=== PATIENT | male | born 1955 | race African-American/Black ===

== ENCOUNTER 2023-02-26 19:04 | Emergency (ER) | payer OTHER ==
[~2023-02-26] VITALS: Ht 182.9 cm; Wt 82.0 kg
[2023-02-26] MEDS ORDERED: ONDANSETRON HCL 4MG/2ML INJ IV STA (19:56)
[2023-02-26] MEDS ORDERED: SODIUM CHLORIDE 0.9% 1,000 ML IV ONE ×2 (20:00→23:00)
[2023-02-26 20:23] VITALS: BP 141/76
[2023-02-26 22:26] LABS: HEMATOCRIT. 37.3 % (42.0-52.0); HEMOGLOBIN. 12.4 g/dL (14.0-18.0); MEAN CORPUSCULAR HEMOGLOBIN 26.4 pg (28.0-32.0); MEAN CORPUSCULAR VOLUME 79.3 fL (80.0-94.0); MEAN PLATELET VOLUME 7.1 fl (7.4-10.4); PLATELET 159 x1000/uL (130-400); RED BLOOD CELL COUNT 4.71 mill/uL (4.7-6.1); RED CELL DISTRIBUTION WIDTH 13.3 % (11.6-14.6)
[2023-02-26 22:34] LABS: CHLORIDE 93 mEq/L (98-107)
[2023-02-26 22:46] LABS: CLARITY URINE CLEAR (CLEAR); COLOR URINE YELLOW (YELLOW); KETONES URINE NEGATIVE (NEGATIVE); LEUKOCYTE ESTERASE URINE NEGATIVE (NEGATIVE); NITRITE URINE NEGATIVE (NEGATIVE); OCCULT BLOOD URINE NEGATIVE (NEGATIVE); PH URINE 8.5 (4.5-8.0); PROTEIN URINE NEGATIVE (NEGATIVE); SPECIFIC GRAVITY URINE 1.009 (1.005-1.030); UROBILINOGEN URINE 0.2 E.U./dL (0.2-1.0)
[2023-02-26 23:20] LABS: PLATELET ESTIMATE NORMAL
== END 2023-02-26 23:54 | disposition home or self-care (01) ==
LOC: ER 19:04
DX: R55 Syncope and collapse (principal); E87.1 Hypo-osmolality and hyponatremia; E86.0 Dehydration; E78.00 Pure hypercholesterolemia, unspecified
CPT/HCPCS: 36415; 70450; 71045; 80053; 81003; 84484; 85025; 93005; 96360; 99285; J7030

== ENCOUNTER 2023-11-13 13:05 | Inpatient (IN) | payer OTHER ==
[~2023-11-13] VITALS: Ht 175.3 cm; Wt 95.7 kg
[2023-11-13 13:09] VITALS: O2SAT 93
[2023-11-13] MEDS ORDERED: MORPHINE SULFATE 4 MG/ML CPJ (NOT FOR IM USE) IV STA (13:13)
[2023-11-13] MEDS ORDERED: ONDANSETRON HCL 4MG/2ML INJ IV STA (13:13)
[2023-11-13] MEDS ORDERED: SODIUM CHLORIDE 0.9% 1,000 ML IV ONE ×2 (13:15→15:00)
[2023-11-13 14:00] LABS: BASOPHILS % 0.2 % (0.0-2.0); EOSINOPHILS % 0.5 % (0.0-5.0); HEMATOCRIT. 37.5 % (42.0-52.0); HEMOGLOBIN. 12.2 g/dL (14.0-18.0); LYMPHOCYTES % 29.6 % (20.0-50.0); MEAN CORPUSCULAR HEMOGLOBIN 26.7 pg (28.0-32.0); MEAN CORPUSCULAR HGB CONC 32.7 g/dL (31.0-37.0); MEAN CORPUSCULAR VOLUME 81.7 fL (80.0-94.0); MEAN PLATELET VOLUME 6.7 fl (7.4-10.4); MONOCYTES % 7.3 % (2.0-8.0); NEUTROPHILS % 62.4 % (40.0-76.0); PLATELET 259 x1000/uL (130-400); RED BLOOD CELL COUNT 4.58 mill/uL (4.7-6.1); RED CELL DISTRIBUTION WIDTH 16.3 % (11.6-14.6); WHITE BLOOD COUNT 4.8 x1000/uL (4.5-11.0)
[2023-11-13 14:14] LABS: ALANINE AMINOTRANSFERASE 43 IU/L (10-49); ASPARTATE AMINOTRANSFERASE 37 IU/L (<34); BILIRUBIN TOTAL 0.5 mg/dL (0.1-1.0); CALCIUM 9.2 mg/dL (8.7-10.4); CARBON DIOXIDE 25 mEq/L (21-32); CHLORIDE 94 mEq/L (98-107); CREATININE 0.9 mg/dL (0.6-1.3); GLUCOSE 152 mg/dL (70-105); POTASSIUM 4.9 mEq/L (3.5-5.1); PROTEIN TOTAL 7.3 g/dL (6.0-8.3); SODIUM 125 mEq/L (136-145); UREA NITROGEN BLOOD 12 mg/dL (9-23)
[2023-11-13 14:21] LABS: TROPONIN I HIGH SENSITIVITY < 4 ng/L (3.0-53)
[2023-11-13] MEDS ORDERED: MORPHINE SULFATE 4 MG/ML CPJ (NOT FOR IM USE) IV NR (16:23)
[2023-11-13] MEDS ORDERED: ONDANSETRON HCL 4MG/2ML INJ IV NR (16:24)
[2023-11-13 16:40] LABS: TROPONIN I HIGH SENSITIVITY 4 ng/L (3.0-53)
[2023-11-13 20:00] VITALS: BP 160/78; PULSE 92; RESP 14
[2023-11-13] MEDS ORDERED: IPRATROPIUM/ALBUTEROL 0.5-3(2.5)MG/3ML NEB HHN PRN (20:00)
[2023-11-13] MEDS ORDERED: ONDANSETRON HCL 4MG/2ML INJ IV PRN (20:00)
[2023-11-13] MEDS ORDERED: DOCUSATE SODIUM 100MG CAPSULE PO PRN (20:00)
[2023-11-13] MEDS ORDERED: CLONIDINE 0.1MG TABLET PO PRN (20:00)
[2023-11-13] MEDS ORDERED: ACETAMINOPHEN 325MG TABLET PO PRN ×2 (20:00)
[2023-11-13 22:00] VITALS: BP_SYST 131; BP_SYST 133; BP_DIAS 70; BP_DIAS 74; PULSE 88; PULSE 94; RESP 17; TEMP 98.8
[2023-11-14] VITALS (11 sets, daily range): BP systolic 123–148; BP diastolic 68–95; PULSE 74–90; RESP 11–21; TEMP 97–98.8
[2023-11-14 07:43] LABS: BASOPHILS % 0.5 % (0.0-2.0); EOSINOPHILS % 1.8 % (0.0-5.0); HEMATOCRIT. 35.8 % (42.0-52.0); HEMOGLOBIN. 12.1 g/dL (14.0-18.0); MEAN CORPUSCULAR HEMOGLOBIN 27.2 pg (28.0-32.0); MEAN CORPUSCULAR HGB CONC 33.9 g/dL (31.0-37.0); MEAN CORPUSCULAR VOLUME 80.4 fL (80.0-94.0); MONOCYTES % 12.4 % (2.0-8.0); NEUTROPHILS % 46.3 % (40.0-76.0); PLATELET 262 x1000/uL (130-400); RED BLOOD CELL COUNT 4.45 mill/uL (4.7-6.1); RED CELL DISTRIBUTION WIDTH 16.6 % (11.6-14.6)
[2023-11-14 07:46] LABS: CALCIUM 9.1 mg/dL (8.7-10.4); CARBON DIOXIDE 24 mEq/L (21-32); CHLORIDE 96 mEq/L (98-107); CREATININE 0.6 mg/dL (0.6-1.3); GLUCOSE 94 mg/dL (70-105); POTASSIUM 4.6 mEq/L (3.5-5.1); SODIUM 127 mEq/L (136-145); UREA NITROGEN BLOOD 11 mg/dL (9-23)
[2023-11-14] MEDS ORDERED: LORAZEPAM 0.5MG TABLET PO PRN (20:00)
[2023-11-14] MEDS ORDERED: MISCELLANEOUS MEDICATION 1 EA PO SCH (21:00)
[2023-11-14] MEDS ORDERED: MELATONIN 3MG TABLET PO SCH (21:00)
== END 2023-11-14 21:55 | disposition short-term general hospital (02) | DRG 312 ==
LOC: ER 13:10 → EDBEDREQ 15:53 → EDBEDREQTM 15:53 → 5EST 18:44
PROVIDERS: ADMIT Internal Medicine; ATTEND Internal Medicine
DX: R55 Syncope and collapse (principal); I46.9 Cardiac arrest, cause unspecified; J44.9 Chronic obstructive pulmonary disease, unspecified; Z85.118 Personal history of other malignant neoplasm of bronchus and lung
CPT/HCPCS: 36415; 71045; 80048; 80053; 83605; 83880; 84484; 85025; 86850; 86900; 93005; 99291; J2270; J2405; J7030

== ENCOUNTER 2024-01-08 11:56 | Emergency (ER) | payer OTHER ==
[~2024-01-08] VITALS: Ht 188 cm; Wt 101.0 kg
[2024-01-08 12:08] VITALS: O2SAT 98
[2024-01-08] MEDS ORDERED: HYDROCODONE/ACETAMINOPHEN 10/325MG TABLET PO ONE (12:15)
[2024-01-08 14:06] VITALS: TEMP 98.1
[2024-01-08 14:16] LABS: BASOPHILS % 0.2 % (0.0-2.0); HEMATOCRIT. 38.7 % (42.0-52.0); HEMOGLOBIN. 13.2 g/dL (14.0-18.0); LYMPHOCYTES % 8.8 % (20.0-50.0); MEAN CORPUSCULAR HEMOGLOBIN 29.1 pg (28.0-32.0); MEAN CORPUSCULAR HGB CONC 34.2 g/dL (31.0-37.0); MEAN CORPUSCULAR VOLUME 84.9 fL (80.0-94.0); MEAN PLATELET VOLUME 7.2 fl (7.4-10.4); PLATELET 235 x1000/uL (130-400); RED BLOOD CELL COUNT 4.56 mill/uL (4.7-6.1); RED CELL DISTRIBUTION WIDTH 18.5 % (11.6-14.6); WHITE BLOOD COUNT 6.5 x1000/uL (4.5-11.0)
[2024-01-08 14:26] LABS: PROTHROMBIN TIME 11.1 sec (9.6-11.0)
[2024-01-08 14:30] LABS: ALANINE AMINOTRANSFERASE 43 IU/L (10-49); ALBUMIN 4.9 g/dL (3.2-4.8); ASPARTATE AMINOTRANSFERASE 70 IU/L (<34); BILIRUBIN TOTAL 0.8 mg/dL (0.1-1.0); CALCIUM 9.4 mg/dL (8.7-10.4); CARBON DIOXIDE 27 mEq/L (21-32); CHLORIDE 98 mEq/L (98-107); CREATININE 0.9 mg/dL (0.6-1.3); GLUCOSE 105 mg/dL (70-105); PROTEIN TOTAL 8.5 g/dL (6.0-8.3); SODIUM 131 mEq/L (136-145); UREA NITROGEN BLOOD 16 mg/dL (9-23)
[2024-01-08 14:31] LABS: TROPONIN I HIGH SENSITIVITY < 4 ng/L (3.0-53)
[2024-01-08] MEDS: HYDROCODONE/ACETAMINOPHEN 10/325MG TABLET PO NR (15:27)
[2024-01-08 16:30] VITALS: BP 131/70; PULSE 89; RESP 14
== END 2024-01-08 16:31 | disposition home or self-care (01) ==
LOC: ER 12:24
DX: R07.89 Other chest pain (principal); E78.00 Pure hypercholesterolemia, unspecified
CPT/HCPCS: 36415; 71045; 80053; 83880; 84484; 85025; 93005; 99285

== ENCOUNTER 2024-03-24 04:38 | Inpatient (IN) | payer OTHER, MEDICARE ==
[2024-03-24] VITALS (68 sets, daily range): BP systolic 52–153; BP diastolic 25–128; PULSE 100–128; RESP 21–43; TEMP 97.8–100.3; O2SAT 99–100
[~2024-03-24] VITALS: Ht 175.3 cm; Wt 85.5 kg
[2024-03-24] MEDS: SODIUM CHLORIDE 0.9% 1000ML BAG (SEPSIS BOLUS) IV ONE (05:13)
[2024-03-24] MEDS ORDERED: CEFEPIME 2GM IN DEXT 5% 100ML IV ONE (05:30)
[2024-03-24 06:04] LABS: HEMATOCRIT. 28.3 % (42.0-52.0); HEMOGLOBIN. 9.4 g/dL (14.0-18.0); MEAN CORPUSCULAR HEMOGLOBIN 28.4 pg (28.0-32.0); MEAN CORPUSCULAR VOLUME 86.1 fL (80.0-94.0); MEAN PLATELET VOLUME 6.8 fl (7.4-10.4); PLATELET 68 x1000/uL (130-400); RED BLOOD CELL COUNT 3.29 mill/uL (4.7-6.1); RED CELL DISTRIBUTION WIDTH 16.2 % (11.6-14.6)
[2024-03-24 06:11] LABS: CARBON DIOXIDE 20 mEq/L (21-32); CHLORIDE 107 mEq/L (98-107); POTASSIUM 3.6 mEq/L (3.5-5.1); SODIUM 137 mEq/L (136-145)
[2024-03-24 06:12] LABS: CALCIUM 7.9 mg/dL (8.7-10.4)
[2024-03-24 06:14] LABS: DIFFERENTIAL COMMENT 1
[2024-03-24] MEDS ORDERED: IOHEXOL-350 100 ML BOTTLE ONE ×2 (06:14→10:11)
[2024-03-24 06:15] LABS: INR 1.1; PARTIAL THROMBOPLASTIN TIME 23.3 sec (23.4-31.0); PROTHROMBIN TIME 11.9 sec (9.6-11.0)
[2024-03-24 06:17] LABS: GLUCOSE 124 mg/dL (70-105); TROPONIN I HIGH SENSITIVITY 5 ng/L (3.0-53); UREA NITROGEN BLOOD 16 mg/dL (9-23)
[2024-03-24 06:18] LABS: ALANINE AMINOTRANSFERASE 27 IU/L (10-49); ALBUMIN 3.5 g/dL (3.2-4.8); ASPARTATE AMINOTRANSFERASE 31 IU/L (<34)
[2024-03-24 06:19] LABS: BILIRUBIN DIRECT 0.2 mg/dL (<=3.0); BILIRUBIN TOTAL 0.5 mg/dL (0.1-1.0)
[2024-03-24] MEDS ORDERED: ACETAMINOPHEN 325MG TABLET PO ONE (06:30)
[2024-03-24 06:31] LABS: LACTIC ACID 3.9 mmol/L (0.4-2.0)
[2024-03-24 06:34] LABS: CREATININE 1.4 mg/dL (0.6-1.3); PROTEIN TOTAL 5.6 g/dL (6.0-8.3)
[2024-03-24] MEDS: NOREPINEPHRINE 8MG/250ML PMX 250 ML IV ONE ×2 (06:39→08:15)
[2024-03-24] MEDS: CEFEPIME 2GM/100ML 100 ML IV NR (06:41)
[2024-03-24] MEDS: VANCOMYCIN 1G PREMIX 200 ML IV SCH ×3 (06:46→13:04)
[2024-03-24] MEDS ORDERED: PHENYLEPHRINE 100 MG in DEXT 5% WATER 240 ML IV PRN (07:45)
[2024-03-24] MEDS ORDERED: ACETAMINOPHEN 325MG TABLET PO PRN (07:45)
[2024-03-24] MEDS ORDERED: MAGNESIUM/ALUMINUM HYDROXIDE/SIMETHICONE 30ML UDC PO PRN (07:45)
[2024-03-24] MEDS ORDERED: GUAIFENESIN 200MG/10ML SUGAR FREE UDC PO PRN (07:45)
[2024-03-24] MEDS ORDERED: ONDANSETRON HCL 4MG/2ML INJ IV PRN (07:45)
[2024-03-24] MEDS ORDERED: CLONIDINE 0.1MG TABLET PO PRN (07:45)
[2024-03-24] MEDS ORDERED: VASOPRESSIN 20 UNIT in SODIUM CHLORIDE 0.9% 99 ML IV PRN (08:30)
[2024-03-24 08:35] LABS: TROPONIN I HIGH SENSITIVITY 8 ng/L (3.0-53)
[2024-03-24] MEDS ORDERED: MEROPENEM 1,000 MG in SODIUM CHLORIDE 0.9% 100 ML IV SCH (08:45)
[2024-03-24] MEDS ORDERED: LACTATED RINGERS 1,700 ML IV ONE (08:45)
[2024-03-24] MEDS ORDERED: DOCUSATE SODIUM 100MG CAPSULE PO PRN (09:00)
[2024-03-24] MEDS ORDERED: ETOMIDATE 2MG/ML 10ML VIAL IV ONE (09:00)
[2024-03-24] MEDS ORDERED: NALOXONE HCL 0.4MG/ML VIAL IV PRN (09:00)
[2024-03-24 09:21] LABS: IRON 19 ug/dL (65-175)
[2024-03-24 09:24] LABS: TOTAL IRON BINDING CAPACITY 272 ug/dl (250-425)
[2024-03-24] MEDS ORDERED: LIDOCAINE HCL 1% 10 MG/ML 10ML VIAL ONE (09:25)
[2024-03-24 09:27] LABS: FOLIC ACID (FOLATE) SERUM > 20.00 ng/mL (>5.38); VITAMIN B12 SERUM 1767 pg/mL (211-911)
[2024-03-24] MEDS ORDERED: MEROPENEM 1G/100ML IV SCH (10:00)
[2024-03-24 10:05] LABS: PLATELET ESTIMATE DECREASED
[2024-03-24 10:06] LABS: ANISOCYTOSIS 1+
[2024-03-24 10:12] LABS: BG BASE EXCESS -8.7 mmol/L (-2.0-2.0); BG CARBOXYHEMOGLOBIN 0.2 % (0.5-1.5); BG DEOXYHEMOGLOBIN 7.2 % (0.0-5.0); BG FRACTION INSPIRED OXYGEN 100; BG HCO3 ACT 17.8 mmol/L (22.0-26.0); BG OXYGEN SATURATION 92.8 % (92.0-98.5); BG OXYHEMOGLOBIN 92.6 % (94.0-97.0); BG PCO2 41.2 mmHg (35.0-45.0); BG PH 7.254 (7.350-7.450); BG PO2 81.8 mmHg (75.0-100.0); BG SAMPLE SITE RIGHT RADIAL; BG TOTAL HEMOGLOBIN 8.7 g/dL (12.0-18.0); BG VENT MODE MASK - NRB
[2024-03-24] MEDS: MEROPENEM 1G/100ML IV SCH ×2 (12:04→17:24)
[2024-03-24] MEDS: METHYLPREDNISOLONE SOD SUCC 40MG/ML (ACT-O-VIAL) IV SCH (12:06)
[2024-03-24] MEDS: PHENYLEPHRINE 100 MG in DEXT 5% WATER 240 ML IV PRN (13:47)
[2024-03-24] MEDS ORDERED: PIPERACILLIN/TAZO 3.375G/50ML 50 ML IV SCH (14:00)
[2024-03-24 14:18] LABS: CLARITY URINE CLOUDY (CLEAR); COLOR URINE DARK YELLOW (YELLOW); GLUCOSE URINE NEGATIVE (NEGATIVE); KETONES URINE TRACE (NEGATIVE); LEUKOCYTE ESTERASE URINE NEGATIVE (NEGATIVE); NITRITE URINE NEGATIVE (NEGATIVE); OCCULT BLOOD URINE 1+ (NEGATIVE); PH URINE 5.5 (4.5-8.0); PROTEIN URINE 2+ (NEGATIVE)
[2024-03-24 14:28] LABS: *AMPHETAMINES SCREEN URINE NEGATIVE (NEGATIVE); *BARBITURATES SCREEN URINE NEGATIVE (NEGATIVE); *BENZODIAZEPINES SCREEN URINE NEGATIVE (NEGATIVE); *COCAINE SCREEN URINE NEGATIVE (NEGATIVE); BACTERIA URINE 1+; CANNABINOID URINE SCREEN NEGATIVE (NEGATIVE); ECSTASY MDMA SCREEN URINE NEGATIVE (NEGATIVE); METHADONE URINE SCREEN NEGATIVE (NEGATIVE); OPIATES URINE SCREEN PRESUMPTIVE POSITIVE (NEGATIVE); PHENCYCLIDINE URINE SCREEN NEGATIVE (NEGATIVE); RBC URINE NONE SEEN /hpf (0-2); SQUAMOUS EPITHELIAL CELL URINE NONE SEEN /lpf (RARE/1+); YEAST URINE NONE SEEN
[2024-03-24] MEDS: HYDROCODONE/ACETAMINOPHEN 10/325MG TABLET PO PRN (15:42)
[2024-03-24 17:04] LABS: BG BASE EXCESS -15.3 mmol/L (-2.0-2.0); BG CARBOXYHEMOGLOBIN 0.2 % (0.5-1.5); BG DEOXYHEMOGLOBIN 5.9 % (0.0-5.0); BG FRACTION INSPIRED OXYGEN 100; BG HCO3 ACT 12.4 mmol/L (22.0-26.0); BG METHEMOGLOBIN 0.3 % (0.0-1.5); BG OXYGEN SATURATION 94.1 % (92.0-98.5); BG OXYHEMOGLOBIN 93.6 % (94.0-97.0); BG PCO2 35.9 mmHg (35.0-45.0); BG PH 7.157 (7.350-7.450); BG PO2 91.1 mmHg (75.0-100.0); BG SAMPLE SITE RIGHT BRACHIAL; BG TOTAL HEMOGLOBIN 10.4 g/dL (12.0-18.0); BG VENT MODE HIGH FLOW
[2024-03-24] MEDS: LACTATED RINGERS 1,000 ML IV SCH (17:25)
[2024-03-24 17:44] LABS: CREATINE KINASE MB FRACTION 40.4 ng/mL (0.5-3.6)
[2024-03-24] MEDS: PANTOPRAZOLE SODIUM 40 MG/VIAL IV SCH (18:18)
[2024-03-24] MEDS: SODIUM BICARBONATE 8.4% 1 MEQ/ML 50ML SYR IV NR ×3 (18:18→23:59)
[2024-03-24 19:10] LABS: BG BASE EXCESS -15.2 mmol/L (-2.0-2.0); BG CARBOXYHEMOGLOBIN 0.2 % (0.5-1.5); BG DEOXYHEMOGLOBIN 3.3 % (0.0-5.0); BG FRACTION INSPIRED OXYGEN 100; BG HCO3 ACT 14.3 mmol/L (22.0-26.0); BG METHEMOGLOBIN 0.4 % (0.0-1.5); BG OXYGEN SATURATION 96.7 % (92.0-98.5); BG OXYHEMOGLOBIN 96.1 % (94.0-97.0); BG PCO2 50.6 mmHg (35.0-45.0); BG PO2 124.6 mmHg (75.0-100.0); BG SAMPLE SITE RIGHT BRACHIAL; BG TOTAL HEMOGLOBIN 9.9 g/dL (12.0-18.0); BG VENT MODE VENT - AC
[2024-03-24] MEDS: FILGRASTIM-TBO 300 MCG/0.5 ML SYRINGE SQ SCH (20:44)
[2024-03-24] MEDS ORDERED: FILGRASTIM-TBO 300 MCG/0.5 ML SYRINGE SQ SCH (21:00)
[2024-03-24 21:16] LABS: CREATINE KINASE MB FRACTION 49.5 ng/mL (0.5-3.6)
[2024-03-24 21:24] LABS: LACTIC ACID 14.5 mmol/L (0.4-2.0)
[2024-03-24 22:02] LABS: POTASSIUM 4.4 mEq/L (3.5-5.1)
[2024-03-24 22:03] LABS: CALCIUM 7.5 mg/dL (8.7-10.4)
[2024-03-24] MEDS: PROPOFOL 10MG/ML 100ML 100 ML IV PRN (22:11)
[2024-03-24 22:12] LABS: CREATININE 2.3 mg/dL (0.6-1.3)
[2024-03-24 23:28] LABS: BG CARBOXYHEMOGLOBIN 0.2 % (0.5-1.5); BG DEOXYHEMOGLOBIN 3.5 % (0.0-5.0); BG FRACTION INSPIRED OXYGEN 100; BG HCO3 ACT 10.6 mmol/L (22.0-26.0); BG METHEMOGLOBIN 0.5 % (0.0-1.5); BG OXYGEN SATURATION 96.5 % (92.0-98.5); BG OXYHEMOGLOBIN 95.8 % (94.0-97.0); BG PCO2 50.4 mmHg (35.0-45.0); BG PO2 125.3 mmHg (75.0-100.0); BG SAMPLE SITE LEFT RADIAL; BG TOTAL HEMOGLOBIN 10.3 g/dL (12.0-18.0); BG VENT MODE VENT - AC
[2024-03-25] VITALS (68 sets, daily range): BP systolic 40–161; BP diastolic 16–135; PULSE 0–126; RESP 25–42; TEMP 96.7–99.4
[2024-03-25] MEDS: ACETYLCYSTEINE 200MG/ML 20% VIAL 4ML INH NR (00:05)
[2024-03-25] MEDS: IPRATROPIUM/ALBUTEROL 0.5-3(2.5)MG/3ML NEB HHN PRN (00:05)
[2024-03-25] MEDS: SODIUM CHLORIDE 0.9% 1,000 ML IV SCH (00:21)
[2024-03-25] MEDS: SODIUM BICARBONATE 8.4% 1 MEQ/ML 50ML SYR IV NR ×2 (00:34→07:56)
[2024-03-25] MEDS: SODIUM BICARBONATE 150 MEQ in DEXTROSE 5% WATER 850 ML IV SCH (01:12)
[2024-03-25] MEDS: NOREPINEPHRINE 32 MG in DEXT 5% WATER 218 ML IV PRN (01:43)
[2024-03-25] MEDS: METHYLPREDNISOLONE SOD SUCC 40MG/ML (ACT-O-VIAL) IV SCH (04:16)
[2024-03-25] MEDS: VASOPRESSIN 20 UNIT in SODIUM CHLORIDE 0.9% 99 ML IV PRN (04:37)
[2024-03-25 05:22] LABS: HEMATOCRIT. 27.1 % (42.0-52.0); HEMOGLOBIN. 8.6 g/dL (14.0-18.0); MEAN CORPUSCULAR HEMOGLOBIN 29.3 pg (28.0-32.0); MEAN CORPUSCULAR HGB CONC 31.7 g/dL (31.0-37.0); MEAN CORPUSCULAR VOLUME 92.2 fL (80.0-94.0); MEAN PLATELET VOLUME 8.7 fl (7.4-10.4); RED BLOOD CELL COUNT 2.94 mill/uL (4.7-6.1); RED CELL DISTRIBUTION WIDTH 17.2 % (11.6-14.6)
[2024-03-25 05:26] LABS: CHLORIDE 104 mEq/L (98-107); SODIUM 143 mEq/L (136-145)
[2024-03-25 05:27] LABS: CALCIUM 7.2 mg/dL (8.7-10.4); CARBON DIOXIDE 15 mEq/L (21-32)
[2024-03-25 05:32] LABS: TRIGLYCERIDE 187 mg/dL (0-150)
[2024-03-25 05:33] LABS: LDL CHOLESTEROL 88 mg/dL (5-100); UREA NITROGEN BLOOD 36 mg/dL (9-23)
[2024-03-25 05:34] LABS: CHOLESTEROL 138 mg/dL (<200); HDL CHOLESTEROL 25 mg/dL (>55)
[2024-03-25 05:37] LABS: T4 FREE 1.01 ng/dL (0.89-1.76); THYROID STIMULATING HORMONE 4.62 uIU/mL (0.55-4.78)
[2024-03-25 05:45] LABS: CREATINE KINASE 3583 IU/L (46-171)
[2024-03-25 05:47] LABS: CREATININE 3.2 mg/dL (0.6-1.3); GLUCOSE 28 mg/dL (70-105); PHOSPHORUS 13.9 mg/dL (2.5-4.9)
[2024-03-25 05:48] LABS: POTASSIUM 5.4 mEq/L (3.5-5.1)
[2024-03-25] MEDS ORDERED: VANCOMYCIN 1.25GM PMX (XELLIA) 250 ML IV SCH (06:00)
[2024-03-25] MEDS: DEXTROSE 50% WATER 50ML SYRINGE IV NR ×2 (06:21→07:52)
[2024-03-25 06:42] LABS: WHITE BLOOD COUNT 0.3 x1000/uL (4.5-11.0)
[2024-03-25 06:44] LABS: PLATELET 46 x1000/uL (130-400); WHITE BLOOD COUNT 0.8 x1000/uL (4.5-11.0)
[2024-03-25 06:45] LABS: DIFFERENTIAL COMMENT 1
[2024-03-25 07:41] LABS: BG BASE EXCESS -19.9 mmol/L (-2.0-2.0); BG CARBOXYHEMOGLOBIN 0.2 % (0.5-1.5); BG DEOXYHEMOGLOBIN 3.5 % (0.0-5.0); BG HCO3 ACT 10.2 mmol/L (22.0-26.0); BG METHEMOGLOBIN 0.3 % (0.0-1.5); BG OXYGEN SATURATION 96.5 % (92.0-98.5); BG PCO2 41.9 mmHg (35.0-45.0); BG PH 7.003 (7.350-7.450); BG PO2 126.9 mmHg (75.0-100.0); BG SAMPLE SITE RIGHT FEMORAL; BG VENT MODE VENT - AC
[2024-03-25] MEDS ORDERED: DEXTROSE 50% WATER 50ML SYRINGE IV PRN (07:45)
[2024-03-25] MEDS: ALBUMIN HUMAN 12.5GM/50ML (25%) IV NR (08:10)
[2024-03-25] MEDS: DEXT 5%/0.45% NACL 1000ML 1,000 ML IV SCH (08:36)
[2024-03-25] MEDS ORDERED: VANCOMYCIN 1.5GM/250ML 250 ML IV SCH (09:00)
[2024-03-25] MEDS ORDERED: ATROPINE SULFATE 1MG/10ML SYR ONE (09:00)
[2024-03-25] MEDS ORDERED: CALCIUM GLUCONATE 1,000 MG in DEXT 5% WATER 90 ML IV ONE (09:15)
[2024-03-25] MEDS: ACETYLCYSTEINE 200MG/ML 20% VIAL 4ML INH SCH (09:17)
[2024-03-25] MEDS: SODIUM POLYSTYRENE SULFONATE 15 G/60 ML BOT PO NR (09:43)
[2024-03-25 09:58] LABS: BG BASE EXCESS -19.1 mmol/L (-2.0-2.0); BG CARBOXYHEMOGLOBIN 0.3 % (0.5-1.5); BG DEOXYHEMOGLOBIN 7.9 % (0.0-5.0); BG HCO3 ACT 10.2 mmol/L (22.0-26.0); BG METHEMOGLOBIN 0.3 % (0.0-1.5); BG OXYGEN SATURATION 92.1 % (92.0-98.5); BG OXYHEMOGLOBIN 91.5 % (94.0-97.0); BG PCO2 37.9 mmHg (35.0-45.0); BG PH 7.047 (7.350-7.450); BG PO2 92.2 mmHg (75.0-100.0); BG SAMPLE SITE ALINE; BG TOTAL HEMOGLOBIN 8.6 g/dL (12.0-18.0); BG VENT MODE VENT - AC
[2024-03-25] MEDS: CALCIUM GLUCONATE 1GM PREMIX 50 ML IV NR (10:36)
[2024-03-25] MEDS: EPINEPHRINE 10 MG in SODIUM CHLORIDE 0.9% 240 ML IV PRN (10:37)
[2024-03-25] MEDS ORDERED: DEXTROSE 5% IV ONE (11:00)
[2024-03-25] MEDS ORDERED: WATER IV ONE (11:00)
[2024-03-25 12:14] LABS: PLATELET ESTIMATE MARKEDLY DECREASED
[2024-03-25 12:15] LABS: ANISOCYTOSIS 1+
[2024-03-25] MEDS ORDERED: MEROPENEM 500MG/50ML IV SCH (18:00)
== END 2024-03-25 12:02 | DRG 871 ==
LOC: ER 04:38 → MICUSO 06:29 → EDBEDREQ 06:32 → EDBEDREQSVC 06:32
PROVIDERS: ADMIT Internal Medicine; ATTEND Internal Medicine
PROC: 05H433Z Insertion of Infusion Device into Left Innominate Vein, Percutaneous Approach (ICD-10-PCS; principal; 2024-03-24)
PROC: B54NZZA Ultrasonography of Left Upper Extremity Veins, Guidance (ICD-10-PCS; 2024-03-24)
PROC: 5A0935A Assistance with Respiratory Ventilation, Less than 24 Consecutive Hours, High Flow/Velocity Cannula (ICD-10-PCS; 2024-03-24)
PROC: 0BH17EZ Insertion of Endotracheal Airway into Trachea, Via Natural or Artificial Opening (ICD-10-PCS; 2024-03-24)
PROC: 5A1935Z Respiratory Ventilation, Less than 24 Consecutive Hours (ICD-10-PCS; 2024-03-24)
PROC: 4A133B1 Monitoring of Arterial Pressure, Peripheral, Percutaneous Approach (ICD-10-PCS; 2024-03-25)
PROC: 5A12012 Performance of Cardiac Output, Single, Manual (ICD-10-PCS; 2024-03-25)
DX: A41.9 Sepsis, unspecified organism (principal); J69.0 Pneumonitis due to inhalation of food and vomit; N17.0 Acute kidney failure with tubular necrosis; R65.21 Severe sepsis with septic shock; J96.01 Acute respiratory failure with hypoxia; J96.02 Acute respiratory failure with hypercapnia; R04.2 Hemoptysis; N39.0 Urinary tract infection, site not specified; C34.90 Malignant neoplasm of unspecified part of unspecified bronchus or lung; M62.82 Rhabdomyolysis; J90 Pleural effusion, not elsewhere classified; I46.9 Cardiac arrest, cause unspecified; E78.5 Hyperlipidemia, unspecified; E86.0 Dehydration; E83.51 Hypocalcemia; D69.6 Thrombocytopenia, unspecified; D50.9 Iron deficiency anemia, unspecified; D63.8 Anemia in other chronic diseases classified elsewhere; E87.5 Hyperkalemia; E16.2 Hypoglycemia, unspecified; E83.39 Other disorders of phosphorus metabolism; E83.42 Hypomagnesemia; D70.1 Agranulocytosis secondary to cancer chemotherapy; T45.1X5A Adverse effect of antineoplastic and immunosuppressive drugs, initial encounter; Z85.118 Personal history of other malignant neoplasm of bronchus and lung; Y92.89 Other specified places as the place of occurrence of the external cause
CPT/HCPCS: 36415; 36573; 36600; 71045; 71275; 74177; 76604; 80048; 80061; 80076; 80305; 81003; 82375; 82550; 82553; 82607; 82746; 82805; 82962; 83540; 83550; 83605; 83735; 83880; 84100; 84439; 84443; 84484; 85025; 85379; 86850; 86900; 93005; 93880; 93970; 94002; 99291; C1725; C9113; J0461; J0610; J0692; J1442; J2185; J2370; J2704; J2920; J3370; J3490; J7030; J7050; J7060; J7070; J7120; J7608; P9047; Q9967